=== PATIENT | female | born 1935 | race Caucasian/White ===

== ENCOUNTER 2018-10-14 11:21 | Inpatient (IN) | payer MEDICARE, MEDICAID | END 2018-10-17 17:30 | disposition home or self-care (01) | LOC: ER 11:21 → OVERFLOW 15:11 → WEST WING 17:46 | DX: L97.529 Non-pressure chronic ulcer of other part of left foot with unspecified severity (principal); I50.43 Acute on chronic combined systolic (congestive) and diastolic (congestive) heart failure; L03.116 Cellulitis of left lower limb; I11.0 Hypertensive heart disease with heart failure; E66.9 Obesity, unspecified; Z68.36 Body mass index [BMI] 36.0-36.9, adult ==

== ENCOUNTER 2020-12-09 11:50 | Inpatient (IN) | payer OTHER, MEDICAID ==
[~2020-12-09] VITALS: Ht 167.6 cm; Wt 90.9 kg
[~2020-12-09 11:50] MED LIST: ALBUAER3 IN; AML5T PO; FURO1TAB33 PO; LORA0.5T20 PO; LOSA100T33 PO; METO-289 PO
[2020-12-09] MEDS ORDERED: CLINDAMYCIN 600MG IV 50 ML IV ONE (12:30)
[2020-12-09] MEDS ORDERED: cefTRIAXone 1GM/50ML D5W 50 ML IV ONE (12:30)
[2020-12-09 13:15] LABS: Basophils # (auto) 0 10 ^3/uL (0-0.2); Basophils % (auto) 0.4 % (0.0-2.0); Eosinophils # (auto) 0.1 10 ^3/uL (0-0.8); Eosinophils % (auto) 0.8 % (0.0-7.0); Hematocrit 39.1 % (36.0-46.0); Hemoglobin 13.4 g/dL (12.2-16.2); Lymphocytes # (auto) 1.7 10 ^3/uL (0.4-5.4); Lymphocytes % (auto) 22.2 % (10.0-50.0); Mean Corpuscular Hemoglobin 30.8 pg (28.0-32.0); Mean Corpuscular Hgb Conc. 34.3 g/dL (32.0-36.0); Mean Corpuscular Volume 89.8 fL (80.0-100.0); Monocytes # (auto) 0.6 10 ^3/uL (0-1.3); Monocytes % (auto) 7.9 % (0.0-12.0); Neutrophils # (auto) 5.3 10 ^3/uL (1.6-8.6); Neutrophils % (auto) 68.7 % (37.0-80.0); Nucleated Red Blood Cells % 0.1 %; Platelet Count (auto) 160 10^3/uL (140-450); Red Blood Cells 4.35 10^6/uL (4.0-5.20); Red Cell Distribution Width 12.8 % (11.8-14.3); White Blood Cell 7.7 10^3/uL (4.4-10.8)
[2020-12-09 13:37] LABS: Alanine Aminotransferase 20 U/L (13-56); Albumin 3.4 g/dL (3.4-5.0); Anion Gap 4 (5-15); Aspartate Aminotransferase 10 U/L (15-37); BUN/Creatinine Ratio 19.8; Blood Urea Nitrogen 16 mg/dL (7-18); Calcium 8.8 mg/dL (8.5-10.1); Carbon Dioxide 31 mmol/L (21-32); Chloride 105 mmol/L (98-107); GFR African American 86 mL/min; GFR Non-African American 71 mL/min; Glucose 117 mg/dL (74-106); Potassium 4.8 mmol/L (3.5-5.1); Sodium 140 mmol/L (136-145)
[2020-12-09 13:39] LABS: Lactic Acid w/Reflex 2.5 mmol/L (0.4-2.0)
[2020-12-09 13:41] LABS: Alkaline Phosphatase 99 U/L (45-117); Bilirubin, Total 0.5 mg/dL (0.2-1.0); Total Protein 6.9 g/dL (6.4-8.2)
[2020-12-09] MEDS ORDERED: NITROGLYCERIN 0.4 MG SL TAB SL PRN ×2 (14:00→18:45)
[2020-12-09] MEDS ORDERED: MORPHINE SULF INJ 2 MG/ML SYRINGE 1ML IV PRN ×3 (14:00→18:45)
[2020-12-09] MEDS ORDERED: CLON0.2T PO (15:21)
[2020-12-09] MEDS ORDERED: CYAN100056 PO (15:21)
[2020-12-09] MEDS ORDERED: LOSA-39 PO (15:21)
[2020-12-09] MEDS ORDERED: FURO20TA3 PO (15:21)
[2020-12-09] MEDS ORDERED: TURM500C3 PO (15:21)
[2020-12-09] MEDS ORDERED: POTA-264 PO (15:21)
[2020-12-09] MEDS ORDERED: DOCUSATE SOD 100 MG CAP PO PRN (18:45)
[2020-12-09] MEDS ORDERED: ALUM & MAG HYDROX-SIMETH LIQ(MAALOX) 30 ML PO PRN (18:45)
[2020-12-09] MEDS ORDERED: hydrALAZINE HCL 20 MG/ML VL IV PRN (18:45)
[2020-12-09] MEDS ORDERED: CLINDAMYCIN 300MG IV 50 ML IV ONE (18:45)
[2020-12-09] MEDS ORDERED: LORazepam 0.5 MG TAB PO PRN (18:45)
[2020-12-09] MEDS ORDERED: ONDANSETRON HCL 4 MG/2 ML VIAL IV PRN (18:45)
[2020-12-09 21:00] VITALS: BP 161/75
[2020-12-09] MEDS: ENOXAPARIN SOD 40 MG/0.4 ML SYRINGE SC SCH (22:45)
[2020-12-09] MEDS: CLINDAMYCIN 300MG IV 50 ML IV SCH (22:45)
[2020-12-09 23:10] VITALS: BP_SYST 113; BP_SYST 161; BP_DIAS 65; BP_DIAS 75
[2020-12-09] MEDS: ACETAMINOPHEN 325 MG TAB PO PRN (23:25)
[2020-12-09 23:33] LABS: Cholesterol 151 mg/dL (< 200)
[2020-12-09 23:37] LABS: HDL Cholesterol 52 mg/dL (40-59); LDL Cholesterol 77 mg/dL (< 100); Triglycerides 124 mg/dL (< 150)
[2020-12-10 05:00] VITALS: BP 141/77
[2020-12-10 05:31] LABS: Albumin 3.3 g/dL (3.4-5.0); Anion Gap 5 (5-15); Blood Urea Nitrogen 20 mg/dL (7-18); Calcium 8.3 mg/dL (8.5-10.1); Carbon Dioxide 26 mmol/L (21-32); Chloride 107 mmol/L (98-107); Glucose 115 mg/dL (74-106); Magnesium 2.1 mg/dL (1.6-2.6); Sodium 138 mmol/L (136-145)
[2020-12-10 05:35] LABS: Alanine Aminotransferase 18 U/L (13-56); Alkaline Phosphatase 93 U/L (45-117); Aspartate Aminotransferase 14 U/L (15-37); Bilirubin, Total 0.6 mg/dL (0.2-1.0); GFR African American 96 mL/min; GFR Non-African American 79 mL/min; Phosphorus 3.8 mg/dL (2.5-4.90); Total Protein 6.2 g/dL (6.4-8.2); Uric Acid 5.3 mg/dL (2.6-6.0)
[2020-12-10 05:37] LABS: Basophils # (auto) 0.1 10 ^3/uL (0-0.2); Basophils % (auto) 1.4 % (0.0-2.0); Eosinophils # (auto) 0.1 10 ^3/uL (0-0.8); Eosinophils % (auto) 1.5 % (0.0-7.0); Hematocrit 36.7 % (36.0-46.0); Hemoglobin 12.9 g/dL (12.2-16.2); Lymphocytes # (auto) 2.4 10 ^3/uL (0.4-5.4); Lymphocytes % (auto) 29.1 % (10.0-50.0); Mean Corpuscular Hemoglobin 31.2 pg (28.0-32.0); Mean Corpuscular Hgb Conc. 35.2 g/dL (32.0-36.0); Mean Corpuscular Volume 88.4 fL (80.0-100.0); Monocytes # (auto) 0.6 10 ^3/uL (0-1.3); Monocytes % (auto) 7.4 % (0.0-12.0); Neutrophils % (auto) 60.6 % (37.0-80.0); Nucleated Red Blood Cells % 0.3 %; Platelet Count (auto) 138 10^3/uL (140-450); Red Blood Cells 4.15 10^6/uL (4.0-5.20); Red Cell Distribution Width 12.9 % (11.8-14.3); White Blood Cell 8.3 10^3/uL (4.4-10.8)
[2020-12-10 05:38] LABS: INR 1.08 (0.9-1.15); Partial Thromboplastin Time 28.9 sec (23.0-31.2)
[2020-12-10] MEDS: FUROSEMIDE 20 MG/2 ML VIAL IV SCH ×2 (06:00→18:55)
[2020-12-10] MEDS: CLINDAMYCIN 300MG IV 50 ML IV SCH ×3 (06:00→21:57)
[2020-12-10 07:05] LABS: Urine Bacteria FEW /hpf (None Seen); Urine Blood Negative /uL (Negative); Urine Specific Gravity 1.015 (1.001-1.035); Urine WBC 3 /hpf (0 - 5)
[2020-12-10 07:19] LABS: Alcohol, Urine < 3.0 mg/dL (0-10); Amphetamine Screen, Urine NEGATIVE (NEGATIVE); Barbiturate Scree,Urine NEGATIVE (NEGATIVE); Benzodiazephine Screen, Urine NEGATIVE (NEGATIVE); Cannabinoid Screen, Urine NEGATIVE (NEGATIVE); Cocaine Screen, Urine NEGATIVE (NEGATIVE); Opiate Scree,Urine NEGATIVE (NEGATIVE); Phencyclidine Screen, Urine NEGATIVE (NEGATIVE)
[2020-12-10 09:00] VITALS: BP 153/76
[2020-12-10] MEDS: POTASSIUM CHL 20 Meq TABLET PO SCH (09:53)
[2020-12-10] MEDS: cefTRIAXone 1GM/50ML D5W 50 ML IV SCH (09:53)
[2020-12-10] MEDS: ENOXAPARIN SOD 40 MG/0.4 ML SYRINGE SC SCH (09:53)
[2020-12-10 13:00] VITALS: BP 153/84
[2020-12-10] MEDS ORDERED: POTASSIUM CHL 10 Meq TABLET PO ONE (13:00)
[2020-12-10 16:50] VITALS: BP 147/77
[2020-12-10 22:00] VITALS: BP 124/83
[2020-12-11] MEDS: HYDROcodone-ACET 5/325MG TAB PO PRN ×2 (02:32→16:20)
[2020-12-11 05:00] VITALS: BP 145/77
[2020-12-11 05:28] LABS: Basophils # (auto) 0 10 ^3/uL (0-0.2); Basophils % (auto) 0.3 % (0.0-2.0); Eosinophils # (auto) 0.1 10 ^3/uL (0-0.8); Eosinophils % (auto) 0.8 % (0.0-7.0); Hematocrit 39.5 % (36.0-46.0); Hemoglobin 13.7 g/dL (12.2-16.2); Lymphocytes # (auto) 1.9 10 ^3/uL (0.4-5.4); Lymphocytes % (auto) 18.8 % (10.0-50.0); Mean Corpuscular Hemoglobin 31.1 pg (28.0-32.0); Mean Corpuscular Hgb Conc. 34.8 g/dL (32.0-36.0); Mean Corpuscular Volume 89.5 fL (80.0-100.0); Monocytes # (auto) 0.9 10 ^3/uL (0-1.3); Neutrophils # (auto) 7.2 10 ^3/uL (1.6-8.6); Neutrophils % (auto) 71.1 % (37.0-80.0); Nucleated Red Blood Cells % 0.1 %; Platelet Count (auto) 163 10^3/uL (140-450); Red Blood Cells 4.41 10^6/uL (4.0-5.20); Red Cell Distribution Width 13.3 % (11.8-14.3); White Blood Cell 10.1 10^3/uL (4.4-10.8)
[2020-12-11 05:34] LABS: Calcium 8.6 mg/dL (8.5-10.1); Potassium 3.7 mmol/L (3.5-5.1)
[2020-12-11 05:36] LABS: BUN/Creatinine Ratio 23.3
[2020-12-11] MEDS: CLINDAMYCIN 300MG IV 50 ML IV SCH ×3 (05:57→21:21)
[2020-12-11] MEDS: FUROSEMIDE 20 MG/2 ML VIAL IV SCH ×2 (05:58→18:15)
[2020-12-11 08:38] VITALS: BP 142/80
[2020-12-11] MEDS: cefTRIAXone 1GM/50ML D5W 50 ML IV SCH (09:21)
[2020-12-11] MEDS: CYANOCOBALAMIN 500 MCG TAB PO SCH (09:21)
[2020-12-11] MEDS: LOSARTAN POTASSIUM 50 MG TAB PO SCH (09:21)
[2020-12-11] MEDS: POTASSIUM CHL 20 Meq TABLET PO SCH (09:21)
[2020-12-11] MEDS: ENOXAPARIN SOD 40 MG/0.4 ML SYRINGE SC SCH (09:22)
[2020-12-11] MEDS ORDERED: POTASSIUM CHL 10 Meq TABLET PO SCH (10:00)
[2020-12-11 13:00] VITALS: BP 152/87
[2020-12-11 16:55] VITALS: BP 149/97
[2020-12-11 20:00] VITALS: BP 144/91
[2020-12-11] MEDS: ACETAMINOPHEN 325 MG TAB PO PRN (21:22)
[2020-12-11 22:00] VITALS: BP 144/91
[2020-12-12 05:00] VITALS: BP 120/64
[2020-12-12] MEDS: CLINDAMYCIN 300MG IV 50 ML IV SCH ×3 (05:23→21:34)
[2020-12-12] MEDS: FUROSEMIDE 20 MG/2 ML VIAL IV SCH ×2 (05:24→17:51)
[2020-12-12 09:00] VITALS: BP 150/94
[2020-12-12] MEDS: CYANOCOBALAMIN 500 MCG TAB PO SCH (09:13)
[2020-12-12] MEDS: POTASSIUM CHL 20 Meq TABLET PO SCH (09:15)
[2020-12-12] MEDS: LOSARTAN POTASSIUM 50 MG TAB PO SCH (09:15)
[2020-12-12] MEDS: ENOXAPARIN SOD 40 MG/0.4 ML SYRINGE SC SCH (09:15)
[2020-12-12] MEDS: cefTRIAXone 1GM/50ML D5W 50 ML IV SCH (09:16)
[2020-12-12 12:30] VITALS: BP 142/89
[2020-12-12] MEDS ORDERED: cloNIDine HCL 0.1 MG TAB PO PRN (14:15)
[2020-12-12 16:56] VITALS: BP 129/79
[2020-12-12] MEDS: HYDROcodone-ACET 5/325MG TAB PO PRN (21:36)
[2020-12-12 22:15] VITALS: BP 148/68
[2020-12-13] MEDS: CLINDAMYCIN 300MG IV 50 ML IV SCH ×3 (05:01→22:57)
[2020-12-13] MEDS: FUROSEMIDE 20 MG/2 ML VIAL IV SCH (05:02)
[2020-12-13 05:24] VITALS: BP 151/85
[2020-12-13 06:05] LABS: Basophils # (auto) 0.1 10 ^3/uL (0-0.2); Basophils % (auto) 0.7 % (0.0-2.0); Eosinophils # (auto) 0.2 10 ^3/uL (0-0.8); Eosinophils % (auto) 1.5 % (0.0-7.0); Hematocrit 42.9 % (36.0-46.0); Hemoglobin 15.1 g/dL (12.2-16.2); Lymphocytes # (auto) 3.4 10 ^3/uL (0.4-5.4); Lymphocytes % (auto) 29.6 % (10.0-50.0); Mean Corpuscular Hemoglobin 31.4 pg (28.0-32.0); Mean Corpuscular Hgb Conc. 35.1 g/dL (32.0-36.0); Mean Corpuscular Volume 89.4 fL (80.0-100.0); Monocytes # (auto) 1.1 10 ^3/uL (0-1.3); Monocytes % (auto) 9.6 % (0.0-12.0); Neutrophils # (auto) 6.8 10 ^3/uL (1.6-8.6); Neutrophils % (auto) 58.6 % (37.0-80.0); Nucleated Red Blood Cells % 0.2 %; Platelet Count (auto) 181 10^3/uL (140-450); Red Cell Distribution Width 13.1 % (11.8-14.3); White Blood Cell 11.6 10^3/uL (4.4-10.8)
[2020-12-13 06:25] LABS: Calcium 8.8 mg/dL (8.5-10.1); Potassium 3.5 mmol/L (3.5-5.1)
[2020-12-13 06:27] LABS: BUN/Creatinine Ratio 20.9
[2020-12-13 09:00] VITALS: BP 138/79
[2020-12-13] MEDS: CYANOCOBALAMIN 500 MCG TAB PO SCH (09:44)
[2020-12-13] MEDS: ENOXAPARIN SOD 40 MG/0.4 ML SYRINGE SC SCH (09:44)
[2020-12-13] MEDS: POTASSIUM CHL 20 Meq TABLET PO SCH (09:45)
[2020-12-13] MEDS: cefTRIAXone 1GM/50ML D5W 50 ML IV SCH (09:45)
[2020-12-13] MEDS: LOSARTAN POTASSIUM 50 MG TAB PO SCH (09:46)
[2020-12-13 12:52] VITALS: BP 138/95
[2020-12-13 17:00] VITALS: BP 134/75
[2020-12-13 22:16] VITALS: BP 132/85
[2020-12-14 05:17] VITALS: BP 141/70
[2020-12-14] MEDS: CLINDAMYCIN 300MG IV 50 ML IV SCH ×3 (05:50→22:33)
[2020-12-14 07:00] LABS: Basophils # (auto) 0 10 ^3/uL (0-0.2); Basophils % (auto) 0.4 % (0.0-2.0); Eosinophils # (auto) 0.2 10 ^3/uL (0-0.8); Eosinophils % (auto) 1.9 % (0.0-7.0); Hematocrit 41.1 % (36.0-46.0); Hemoglobin 14.5 g/dL (12.2-16.2); Lymphocytes # (auto) 2.8 10 ^3/uL (0.4-5.4); Lymphocytes % (auto) 27.9 % (10.0-50.0); Mean Corpuscular Hemoglobin 31.6 pg (28.0-32.0); Mean Corpuscular Hgb Conc. 35.4 g/dL (32.0-36.0); Mean Corpuscular Volume 89.4 fL (80.0-100.0); Monocytes # (auto) 0.9 10 ^3/uL (0-1.3); Monocytes % (auto) 9.1 % (0.0-12.0); Neutrophils # (auto) 6.1 10 ^3/uL (1.6-8.6); Neutrophils % (auto) 60.7 % (37.0-80.0); Nucleated Red Blood Cells % 0.1 %; Platelet Count (auto) 177 10^3/uL (140-450)
[2020-12-14 07:50] LABS: Calcium 8.8 mg/dL (8.5-10.1); Potassium 4.1 mmol/L (3.5-5.1)
[2020-12-14 07:54] LABS: BUN/Creatinine Ratio 21.3
[2020-12-14 08:30] VITALS: BP 132/68
[2020-12-14] MEDS: cefTRIAXone 1GM/50ML D5W 50 ML IV SCH (08:56)
[2020-12-14] MEDS: ENOXAPARIN SOD 40 MG/0.4 ML SYRINGE SC SCH (11:48)
[2020-12-14] MEDS: POTASSIUM CHL 20 Meq TABLET PO SCH (11:49)
[2020-12-14] MEDS: CYANOCOBALAMIN 500 MCG TAB PO SCH (11:49)
[2020-12-14] MEDS: LOSARTAN POTASSIUM 50 MG TAB PO SCH (11:51)
[2020-12-14 12:30] VITALS: BP 144/78
[2020-12-14 17:00] VITALS: BP 111/70
[2020-12-14 22:00] VITALS: BP 138/79
[2020-12-14] MEDS: HYDROcodone-ACET 5/325MG TAB PO PRN (23:03)
[2020-12-15 05:00] VITALS: BP 119/69
[2020-12-15] MEDS: CLINDAMYCIN 300MG IV 50 ML IV SCH ×2 (05:40→13:28)
[2020-12-15 06:12] LABS: Basophils # (auto) 0 10 ^3/uL (0-0.2); Basophils % (auto) 0.5 % (0.0-2.0); Eosinophils # (auto) 0.2 10 ^3/uL (0-0.8); Eosinophils % (auto) 2.5 % (0.0-7.0); Hematocrit 38.6 % (36.0-46.0); Hemoglobin 13.6 g/dL (12.2-16.2); Lymphocytes # (auto) 2.5 10 ^3/uL (0.4-5.4); Lymphocytes % (auto) 29.5 % (10.0-50.0); Mean Corpuscular Hemoglobin 31.8 pg (28.0-32.0); Mean Corpuscular Hgb Conc. 35.2 g/dL (32.0-36.0); Mean Corpuscular Volume 90.1 fL (80.0-100.0); Monocytes # (auto) 0.9 10 ^3/uL (0-1.3); Monocytes % (auto) 10.6 % (0.0-12.0); Neutrophils # (auto) 4.8 10 ^3/uL (1.6-8.6); Neutrophils % (auto) 56.9 % (37.0-80.0); Nucleated Red Blood Cells % 0.1 %; Platelet Count (auto) 180 10^3/uL (140-450); Red Blood Cells 4.29 10^6/uL (4.0-5.20); Red Cell Distribution Width 13.3 % (11.8-14.3); White Blood Cell 8.5 10^3/uL (4.4-10.8)
[2020-12-15 06:33] LABS: BUN/Creatinine Ratio 21.1; Calcium 8.7 mg/dL (8.5-10.1); Potassium 4.1 mmol/L (3.5-5.1)
[2020-12-15 09:00] VITALS: BP 139/69
[2020-12-15] MEDS: cefTRIAXone 1GM/50ML D5W 50 ML IV SCH (09:00)
[2020-12-15] MEDS: CYANOCOBALAMIN 500 MCG TAB PO SCH (10:05)
[2020-12-15] MEDS: ENOXAPARIN SOD 40 MG/0.4 ML SYRINGE SC SCH (10:05)
[2020-12-15] MEDS: LOSARTAN POTASSIUM 50 MG TAB PO SCH (10:05)
[2020-12-15] MEDS ORDERED: CLIN300C8 PO (11:22)
[2020-12-15 13:00] VITALS: BP 121/67
[2020-12-15 17:00] VITALS: BP 127/98
== END 2020-12-15 20:15 | disposition home health service (06) | DRG 602 ==
LOC: ER 11:50 → TELE 13:49 → TELE-CENTR 20:55
PROVIDERS: ADMIT Hospitalist; ATTEND Internal Medicine Pulmonary Disease
DX: L03.116 Cellulitis of left lower limb (principal); N17.0 Acute kidney failure with tubular necrosis; I50.43 Acute on chronic combined systolic (congestive) and diastolic (congestive) heart failure; J18.9 Pneumonia, unspecified organism; I13.0 Hypertensive heart and chronic kidney disease with heart failure and stage 1 through stage 4 chronic kidney disease, or unspecified chronic kidney disease; J44.0 Chronic obstructive pulmonary disease with (acute) lower respiratory infection; I16.9 Hypertensive crisis, unspecified; Z20.822 Contact with and (suspected) exposure to COVID-19; N18.9 Chronic kidney disease, unspecified; I87.2 Venous insufficiency (chronic) (peripheral); E66.01 Morbid (severe) obesity due to excess calories; M19.90 Unspecified osteoarthritis, unspecified site; E78.5 Hyperlipidemia, unspecified; Z90.49 Acquired absence of other specified parts of digestive tract; Z90.89 Acquired absence of other organs; Z82.49 Family history of ischemic heart disease and other diseases of the circulatory system; Z79.899 Other long term (current) drug therapy; Z68.37 Body mass index [BMI] 37.0-37.9, adult
CPT/HCPCS: 36415; 71045; 80048; 80053; 80061; 80307; 81001; 82306; 83036; 83605; 83735; 83880; 84100; 84443; 84484; 84550; 85025; 85049; 85379; 85610; 85730; 87040; 87086; 87426; 93005; 93306; 93971; 96365; 96367; 97110; 97116; 97163; 97530; G0378; J0696; J3490

== ENCOUNTER 2022-05-08 11:07 | Inpatient (IN) | payer OTHER, MEDICAID ==
[~2022-05-08] VITALS: Ht 149.9 cm; Wt 90.0 kg
[~2022-05-08 11:07] MED LIST changes: -ALBUAER3 IN; -AML5T PO; +CLIN300C8 PO; +CLON0.2T PO; +CYAN100056 PO; -FURO1TAB33 PO; +FURO20TA3 PO; -LORA0.5T20 PO; +LOSA-39 PO; -LOSA100T33 PO; -METO-289 PO; +POTA-264 PO; +TURM500C3 PO
[2022-05-08 13:12] LABS: Basophils # (auto) 0 10 ^3/uL (0-0.2); Basophils % (auto) 0.4 % (0.0-2.0); Eosinophils # (auto) 0 10 ^3/uL (0-0.8); Eosinophils % (auto) 0.5 % (0.0-7.0); Hematocrit 43.4 % (36.0-46.0); Hemoglobin 14.3 g/dL (12.2-16.2); Lymphocytes # (auto) 1.4 10 ^3/uL (0.4-5.4); Lymphocytes % (auto) 18.3 % (10.0-50.0); Mean Corpuscular Hemoglobin 29.6 pg (28.0-32.0); Mean Corpuscular Hgb Conc. 32.9 g/dL (32.0-36.0); Monocytes # (auto) 0.5 10 ^3/uL (0-1.3); Monocytes % (auto) 6.7 % (0.0-12.0); Neutrophils # (auto) 5.8 10 ^3/uL (1.6-8.6); Neutrophils % (auto) 74.1 % (37.0-80.0); Nucleated Red Blood Cells % 0.2 %; Red Blood Cells 4.83 10^6/uL (4.0-5.20); Red Cell Distribution Width 13.7 % (11.8-14.3); White Blood Cell 7.9 10^3/uL (4.4-10.8)
[2022-05-08] MEDS ORDERED: CLINDAMYCIN 600MG IV 50 ML IV ONE (14:30)
[2022-05-08] MEDS ORDERED: HYDROcodone-ACET 5/325MG TAB PO PRN (15:00)
[2022-05-08] MEDS ORDERED: PANTOPRAZOLE 40 MG/10 ML VIAL INJ IV ONE (15:00)
[2022-05-08] MEDS ORDERED: FUROSEMIDE 20 MG/2 ML VIAL IV ONE (15:00)
[2022-05-08 17:17] LABS: INR 0.99 (0.9-1.15); Partial Thromboplastin Time 26.8 sec (24.6-33.4)
[2022-05-08 17:22] LABS: BUN/Creatinine Ratio 18.3; Calcium 9.5 mg/dL (8.5-10.1); Potassium 3.9 mmol/L (3.5-5.1)
[2022-05-08 17:28] LABS: Bilirubin, Total 0.6 mg/dL (0.2-1.0); Total Protein 7.6 g/dL (6.4-8.2)
[2022-05-08 17:37] LABS: Cholesterol 143 mg/dL (< 200); HDL Cholesterol 55 mg/dL (40-59); LDL Cholesterol 81 mg/dL (< 100); Triglycerides 181 mg/dL (< 150)
[2022-05-08] MEDS: CLINDAMYCIN 600MG IV 50 ML IV SCH (22:00)
[2022-05-08] MEDS: ASCORBIC ACID 500 MG TAB PO SCH (22:00)
[2022-05-09] MEDS: CLINDAMYCIN 600MG IV 50 ML IV SCH ×3 (06:00→22:02)
[2022-05-09 06:50] LABS: Basophils # (auto) 0 10 ^3/uL (0-0.2); Basophils % (auto) 0.5 % (0.0-2.0); Eosinophils # (auto) 0.1 10 ^3/uL (0-0.8); Eosinophils % (auto) 0.7 % (0.0-7.0); Hematocrit 46.4 % (36.0-46.0); Hemoglobin 15.5 g/dL (12.2-16.2); Lymphocytes # (auto) 2.4 10 ^3/uL (0.4-5.4); Lymphocytes % (auto) 24.1 % (10.0-50.0); Mean Corpuscular Hemoglobin 30.6 pg (28.0-32.0); Mean Corpuscular Hgb Conc. 33.3 g/dL (32.0-36.0); Mean Corpuscular Volume 91.7 fL (80.0-100.0); Monocytes # (auto) 0.7 10 ^3/uL (0-1.3); Monocytes % (auto) 7.5 % (0.0-12.0); Neutrophils # (auto) 6.6 10 ^3/uL (1.6-8.6); Neutrophils % (auto) 67.2 % (37.0-80.0); Nucleated Red Blood Cells % 0.1 %; Red Blood Cells 5.06 10^6/uL (4.0-5.20); Red Cell Distribution Width 13.8 % (11.8-14.3); White Blood Cell 9.8 10^3/uL (4.4-10.8)
[2022-05-09] MEDS: SODIUM CHLORIDE 0.9% 1,000 ML IV SCH ×2 (07:00→07:40)
[2022-05-09 09:00] VITALS: BP 140/81
[2022-05-09] MEDS: FUROSEMIDE 20 MG/2 ML VIAL IV SCH (10:00)
[2022-05-09] MEDS ORDERED: PANTOPRAZOLE 40 MG/10 ML VIAL INJ IV SCH (10:00)
[2022-05-09] MEDS: ASCORBIC ACID 500 MG TAB PO SCH ×2 (10:02→22:02)
[2022-05-09] MEDS: MULTIPLE VITAMIN TAB PO SCH (10:02)
[2022-05-09] MEDS: ZINC SULFATE 220mg CAP or TAB PO SCH (10:02)
[2022-05-09] MEDS: ENOXAPARIN SOD 40 MG/0.4 ML SYRINGE SC SCH (10:03)
[2022-05-09] MEDS ORDERED: cefTRIAXone 1GM/50ML D5W 50 ML IV ONE (11:30)
[2022-05-09 13:00] VITALS: BP 150/78
[2022-05-09] MEDS: ACETAMINOPHEN 325 MG TAB PO PRN (14:46)
[2022-05-09 17:00] VITALS: BP 134/56
[2022-05-09 22:00] VITALS: BP 145/71
[2022-05-10] MEDS: SODIUM CHLORIDE 0.9% 1,000 ML IV SCH ×2 (01:29→17:00)
[2022-05-10 05:00] VITALS: BP 165/66
[2022-05-10] MEDS: CLINDAMYCIN 600MG IV 50 ML IV SCH ×3 (05:59→21:58)
[2022-05-10 08:00] VITALS: BP 179/93
[2022-05-10] MEDS: cefTRIAXone 1GM/50ML D5W 50 ML IV SCH (09:00)
[2022-05-10] MEDS ORDERED: cloNIDine HCL 0.1 MG TAB PO ONE (09:30)
[2022-05-10] MEDS: FUROSEMIDE 20 MG/2 ML VIAL IV SCH (10:08)
[2022-05-10] MEDS: ENOXAPARIN SOD 40 MG/0.4 ML SYRINGE SC SCH (10:09)
[2022-05-10] MEDS: ASCORBIC ACID 500 MG TAB PO SCH ×2 (10:09→21:58)
[2022-05-10] MEDS: MULTIPLE VITAMIN TAB PO SCH (10:09)
[2022-05-10] MEDS: ZINC SULFATE 220mg CAP or TAB PO SCH (10:17)
[2022-05-10] MEDS: ACETAMINOPHEN 325 MG TAB PO PRN ×2 (11:17→22:14)
[2022-05-10 12:00] VITALS: BP 171/83
[2022-05-10 16:00] VITALS: BP 146/75
[2022-05-10] MEDS ORDERED: DAKINS HALF STR 0.25% (NaHypochlorite) 473 ML TOPICAL SOL TOP ONE (19:30)
[2022-05-10 22:00] VITALS: BP 169/80
[2022-05-10] MEDS: cloNIDine HCL 0.1 MG TAB PO PRN (23:24)
[2022-05-11 05:00] VITALS: BP 136/76
[2022-05-11] MEDS: CLINDAMYCIN 600MG IV 50 ML IV SCH ×2 (06:00→14:00)
[2022-05-11 09:00] VITALS: BP 141/72
[2022-05-11] MEDS: cefTRIAXone 1GM/50ML D5W 50 ML IV SCH (09:00)
[2022-05-11] MEDS: FUROSEMIDE 20 MG/2 ML VIAL IV SCH (09:20)
[2022-05-11] MEDS: SODIUM CHLORIDE 0.9% 1,000 ML IV SCH (09:21)
[2022-05-11] MEDS: ACETAMINOPHEN 325 MG TAB PO PRN (09:22)
[2022-05-11] MEDS: ASCORBIC ACID 500 MG TAB PO SCH (09:22)
[2022-05-11] MEDS: ZINC SULFATE 220mg CAP or TAB PO SCH (09:22)
[2022-05-11] MEDS: MULTIPLE VITAMIN TAB PO SCH (09:22)
[2022-05-11] MEDS: ENOXAPARIN SOD 40 MG/0.4 ML SYRINGE SC SCH (09:22)
[2022-05-11] MEDS ORDERED: CLIN300C8 PO (10:54)
[2022-05-11] MEDS ORDERED: HYDR-4902 PO (10:54)
[2022-05-11] MEDS ORDERED: CEPH-322 PO (10:54)
[2022-05-11] MEDS: cloNIDine HCL 0.1 MG TAB PO PRN (12:35)
[2022-05-11 12:44] VITALS: BP 132/65
[2022-05-11 13:00] VITALS: BP 164/81
== END 2022-05-11 18:00 | disposition home or self-care (01) | DRG 602 ==
LOC: ER 11:07 → EDBD 11:07 → OVERFLOW 15:06 → WEST WING 05-09 09:41
PROVIDERS: ADMIT Nurse Practitioner Family; ATTEND Family Medicine
DX: L03.116 Cellulitis of left lower limb (principal); I50.43 Acute on chronic combined systolic (congestive) and diastolic (congestive) heart failure; J44.1 Chronic obstructive pulmonary disease with (acute) exacerbation; Z68.41 Body mass index [BMI] 40.0-44.9, adult; M86.8X7 Other osteomyelitis, ankle and foot; E66.01 Morbid (severe) obesity due to excess calories; I11.0 Hypertensive heart disease with heart failure; J44.9 Chronic obstructive pulmonary disease, unspecified; H91.90 Unspecified hearing loss, unspecified ear; Z20.822 Contact with and (suspected) exposure to COVID-19; M19.90 Unspecified osteoarthritis, unspecified site; M81.0 Age-related osteoporosis without current pathological fracture; Z90.49 Acquired absence of other specified parts of digestive tract
CPT/HCPCS: 36415; 73700; 80053; 80061; 83036; 85025; 85610; 85652; 85730; 87077; 87186; 87205; 87426; 93306; 93926; 93971; C9113; G0378; J0696; J3490

== ENCOUNTER 2023-12-27 09:24 | Inpatient (IN) | payer OTHER, MEDICAID ==
[~2023-12-27] VITALS: Ht 172.7 cm; Wt 87.5 kg
[~2023-12-27 09:24] MED LIST changes: +CEPH250C PO; +CLIN1CAP70 PO; -CLIN300C8 PO; +HYDR-4902 PO; -LOSA-39 PO; +LOSA-535 PO
[2023-12-27 10:12] LABS: Basophils # (auto) 0 10 ^3/uL (0-0.2); Basophils % (auto) 0.4 % (0.0-2.0); Eosinophils # (auto) 0 10 ^3/uL (0-0.8); Eosinophils % (auto) 0.5 % (0.0-7.0); Hematocrit 40.2 % (36.0-46.0); Hemoglobin 13.9 g/dL (12.2-16.2); Lymphocytes % (auto) 22.5 % (10.0-50.0); Mean Corpuscular Hemoglobin 31.1 pg (28.0-32.0); Mean Corpuscular Hgb Conc. 34.4 g/dL (32.0-36.0); Mean Corpuscular Volume 90.4 fL (80.0-100.0); Monocytes # (auto) 0.6 10 ^3/uL (0-1.3); Neutrophils # (auto) 6.1 10 ^3/uL (1.6-8.6); Neutrophils % (auto) 69.6 % (37.0-80.0); Nucleated Red Blood Cells % 0.1 %; Red Blood Cells 4.45 10^6/uL (4.0-5.20); Red Cell Distribution Width 13.3 % (11.8-14.3); White Blood Cell 8.7 10^3/uL (4.4-10.8)
[2023-12-27 10:17] VITALS: PULSE 58; RESP 12; O2SAT 96
[2023-12-27 10:29] LABS: Alanine Aminotransferase 11 U/L (7-40); Albumin 4.3 g/dL (3.2-4.8); Alkaline Phosphatase 125 U/L (46-116); Anion Gap 6 (5-15); Aspartate Aminotransferase 13 U/L (13-40); Blood Urea Nitrogen 12 mg/dL (9-23); Calcium 9.6 mg/dL (8.7-10.4); Carbon Dioxide 29 mmol/L (20-30); Chloride 105 mmol/L (98-107); Glucose 139 mg/dL (74-106); Magnesium 2.2 mg/dL (1.6-2.6); Potassium 4.1 mmol/L (3.5-5.1); Sodium 140 mmol/L (136-145)
[2023-12-27 10:30] LABS: Total Protein 6.6 g/dL (5.7-8.2)
[2023-12-27] MEDS: FUROSEMIDE 40 MG/4 ML VIAL IV ONE (11:18)
[2023-12-27 11:30] LABS: INR 1.07 (0.9-1.15); Partial Thromboplastin Time 25.1 SEC (24.5-34.5); Prothrombin Time 11.3 sec (9.3-11.8)
[2023-12-27 11:34] LABS: Urine Bacteria None Seen /hpf (None Seen)
[2023-12-27 11:48] LABS: Urine Blood 1+ /uL (Negative); Urine Clarity Turbid (Clear); Urine Color Colorless (Yellow); Urine Protein, UAD Negative (Negative); Urine Specific Gravity 1.008 (1.001-1.035); Urine Urobilinogen Normal (Negative); Urine WBC <1 /hpf (0 - 5)
[2023-12-27] MEDS: cefTRIAXone 1GM/50ML D5W 50 ML IV ONE (12:41)
[2023-12-27] MEDS: CLINDAMYCIN 600MG IV 50 ML IV ONE (12:43)
[2023-12-27] MEDS ORDERED: NITROGLYCERIN 0.4 MG SL TAB SL PRN ×2 (13:00)
[2023-12-27] MEDS ORDERED: MORPHINE SULFATE INJ 2 MG/ml SYRG IV PRN (13:00)
[2023-12-27] MEDS ORDERED: MORPHINE SULFATE 4 MG/ML SYR/VIAL IV PRN (13:00)
[2023-12-27 14:00] VITALS: PULSE 53; RESP 17; O2SAT 95
[2023-12-27 14:41] LABS: INR 1.13 (0.9-1.15); Prothrombin Time 11.9 sec (9.3-11.8)
[2023-12-27] MEDS: CLINDAMYCIN 300MG IV 50 ML IV SCH (16:09)
[2023-12-27] MEDS: BUMETANIDE 2.5mg/10ml (0.25 mg/ml) INJ IV ONE (16:11)
[2023-12-27 16:31] VITALS: BP 168/80; PULSE 53; RESP 17; TEMP 98; O2SAT 95
[2023-12-27] MEDS: BUMETANIDE 2.5mg/10ml (0.25 mg/ml) INJ IV SCH (19:58)
[2023-12-27 20:00] VITALS: PULSE 60
[2023-12-27 21:00] VITALS: BP 131/51; PULSE 54; RESP 18; TEMP 98.3; O2SAT 95
[2023-12-27] MEDS: ATORVASTATIN 20 MG TAB PO SCH (21:46)
[2023-12-27] MEDS: ENOXAPARIN SOD 40 MG/0.4 ML SYRINGE SC ONE (21:47)
[2023-12-27] MEDS: ACETAMINOPHEN 325 MG TAB PO PRN (22:09)
[2023-12-28] VITALS (8 sets, daily range): BP systolic 128–163; BP diastolic 50–82; PULSE 58–89; RESP 18–21; TEMP 97.8–98.9; O2SAT 94–100
[2023-12-28 06:19] LABS: Alanine Aminotransferase 10 U/L (7-40); Albumin 4.1 g/dL (3.2-4.8); Alkaline Phosphatase 121 U/L (46-116); Anion Gap 5 (5-15); Aspartate Aminotransferase < 8 U/L (13-40); BUN/Creatinine Ratio 20.2 (10.0-20.0); Blood Urea Nitrogen 18 mg/dL (9-23); Calcium 9.6 mg/dL (8.7-10.4); Carbon Dioxide 32 mmol/L (20-30); Chloride 101 mmol/L (98-107); Cholesterol 129 mg/dL (< 200); Glucose 139 mg/dL (74-106); HDL Cholesterol 43 mg/dL (40-59); LDL Cholesterol 64 mg/dL (< 100); Potassium 3.8 mmol/L (3.5-5.1); Sodium 138 mmol/L (136-145); Total Protein 6.4 g/dL (5.7-8.2); Triglycerides 150 mg/dL (< 150)
[2023-12-28] MEDS: LOSARTAN POTASSIUM 50 MG TAB PO SCH (09:42)
[2023-12-28] MEDS: ASPirin 81 mg TAB PO SCH (09:42)
[2023-12-28] MEDS: DOCUSATE SOD 100 MG CAP PO SCH (09:42)
[2023-12-28] MEDS: ENOXAPARIN SOD 40 MG/0.4 ML SYRINGE SC SCH (10:00)
[2023-12-28] MEDS: cefTRIAXone 1GM/50ML D5W 50 ML IV ONE (16:37)
[2023-12-28] MEDS: ONDANSETRON HCL 4 MG/2 ML VIAL IV PRN (17:45)
[2023-12-29] VITALS (8 sets, daily range): BP systolic 138–164; BP diastolic 61–92; PULSE 74–104; RESP 18–21; TEMP 98–98.4; O2SAT 96–98
[2023-12-29] MEDS: hydrALAZINE HCL 20 MG/ML VL IV PRN (02:11)
[2023-12-29 06:13] LABS: Basophils # (auto) 0 10 ^3/uL (0-0.2); Basophils % (auto) 0.3 % (0.0-2.0); Eosinophils # (auto) 0 10 ^3/uL (0-0.8); Eosinophils % (auto) 0.1 % (0.0-7.0); Hematocrit 45.1 % (36.0-46.0); Hemoglobin 15.6 g/dL (12.2-16.2); Lymphocytes # (auto) 1.5 10 ^3/uL (0.4-5.4); Lymphocytes % (auto) 11.3 % (10.0-50.0); Mean Corpuscular Hemoglobin 31.1 pg (28.0-32.0); Mean Corpuscular Hgb Conc. 34.6 g/dL (32.0-36.0); Mean Corpuscular Volume 89.9 fL (80.0-100.0); Monocytes # (auto) 0.8 10 ^3/uL (0-1.3); Monocytes % (auto) 6.4 % (0.0-12.0); Neutrophils # (auto) 10.8 10 ^3/uL (1.6-8.6); Neutrophils % (auto) 81.9 % (37.0-80.0); Nucleated Red Blood Cells % 0.1 %; Red Blood Cells 5.02 10^6/uL (4.0-5.20); Red Cell Distribution Width 13.4 % (11.8-14.3); White Blood Cell 13.2 10^3/uL (4.4-10.8)
[2023-12-29 06:20] LABS: Anion Gap 7 (5-15); Carbon Dioxide 30 mmol/L (20-30); Chloride 101 mmol/L (98-107); Potassium 3.5 mmol/L (3.5-5.1); Sodium 138 mmol/L (136-145)
[2023-12-29 06:22] LABS: Calcium 9.7 mg/dL (8.7-10.4)
[2023-12-29 06:26] LABS: BUN/Creatinine Ratio 16.9 (10.0-20.0); Blood Urea Nitrogen 14 mg/dL (9-23); Glucose 172 mg/dL (74-106)
[2023-12-29] MEDS: cefTRIAXone 1GM/50ML D5W 50 ML IV SCH (09:25)
[2023-12-29] MEDS ORDERED: OMNIPAQUE 12mg/ml 500ml ORAL SOLUTION PO ONE (14:08)
[2023-12-29] MEDS ORDERED: IOHEXOL 300 MG/ML 100ML BOTTLE IJ ONE (18:15)
[2023-12-29] MEDS ORDERED: ALBUTEROL SULF 2.5 MG/0.5ML(0.5%) NEB SOLN NEB PRN (21:30)
[2023-12-29] MEDS ORDERED: IPRATROPIUM BROM 0.5 MG/2.5ML INH SOL NEB PRN (21:30)
[2023-12-29] MEDS: ceFAZolin 2 GM/D5W50ml 50 ML IV ONE (22:08)
[2023-12-30] VITALS (7 sets, daily range): BP systolic 136–169; BP diastolic 62–80; PULSE 95–117; RESP 16–21; TEMP 98–98.5; O2SAT 92–95
[2023-12-30] MEDS: ceFAZolin 2 GM/D5W50ml 50 ML IV SCH (06:00)
[2023-12-30 06:56] LABS: Alanine Aminotransferase 11 U/L (7-40); Albumin 4.3 g/dL (3.2-4.8); Alkaline Phosphatase 126 U/L (46-116); Anion Gap 9 (5-15); Aspartate Aminotransferase 16 U/L (13-40); BUN/Creatinine Ratio 12.8 (10.0-20.0); Blood Urea Nitrogen 11 mg/dL (9-23); Calcium 9.6 mg/dL (8.7-10.4); Carbon Dioxide 26 mmol/L (20-30); Chloride 99 mmol/L (98-107); Glucose 183 mg/dL (74-106); Magnesium 1.9 mg/dL (1.6-2.6); Potassium 3.2 mmol/L (3.5-5.1); Sodium 134 mmol/L (136-145)
[2023-12-30 06:57] LABS: Bilirubin, Total 1.1 mg/dL (0.2-1.0); Total Protein 6.8 g/dL (5.7-8.2)
[2023-12-30 07:06] LABS: Basophils # (auto) 0 10 ^3/uL (0-0.2); Eosinophils # (auto) 0 10 ^3/uL (0-0.8); Eosinophils % (auto) 0.1 % (0.0-7.0); Lymphocytes # (auto) 1.9 10 ^3/uL (0.4-5.4); Red Cell Distribution Width 13.4 % (11.8-14.3); White Blood Cell 19.2 10^3/uL (4.4-10.8)
[2023-12-30 07:15] LABS: Basophils % (auto) 0.2 % (0.0-2.0); Hematocrit 48.2 % (36.0-46.0); Hemoglobin 16.3 g/dL (12.2-16.2); Lymphocytes % (auto) 9.8 % (10.0-50.0); Mean Corpuscular Hemoglobin 30.6 pg (28.0-32.0); Mean Corpuscular Hgb Conc. 33.8 g/dL (32.0-36.0); Mean Corpuscular Volume 90.8 fL (80.0-100.0); Monocytes # (auto) 1.1 10 ^3/uL (0-1.3); Neutrophils # (auto) 16.1 10 ^3/uL (1.6-8.6); Neutrophils % (auto) 83.9 % (37.0-80.0); Nucleated Red Blood Cells % 0.2 %; Red Blood Cells 5.31 10^6/uL (4.0-5.20)
[2023-12-30] MEDS: FUROSEMIDE 20 MG TAB PO SCH (10:00)
[2023-12-30] MEDS: cefTRIAXone 1GM/50ML D5W 50 ML IV SCH (10:22)
[2023-12-30] MEDS: POTASSIUM EFFERVESENT TAB 25 MEQ PO ONE ×2 (10:25→13:15)
[2023-12-30] MEDS: DOCUSATE SOD 100 MG CAP PO ONE (13:15)
[2023-12-30] MEDS ORDERED: BUME2TAB5 PO (14:19)
[2023-12-30] MEDS ORDERED: CEPH250C PO (14:19)
[2023-12-30] MEDS: PANTOPRAZOLE 40 MG/10 ML VIAL INJ IV ONE (15:08)
[2023-12-30] MEDS: MAGNESIUM SULFATE 1GM/100ML 100 ML IV ONE (15:08)
[2023-12-30] MEDS: BUMETANIDE 2.5mg/10ml (0.25 mg/ml) INJ IV ONE (15:09)
[2023-12-30] MEDS: POTASSIUM CHL 10 Meq TABLET PO ONE (15:09)
[2023-12-30] MEDS ORDERED: BUMETANIDE 2.5mg/10ml (0.25 mg/ml) INJ IV SCH (18:00)
[2023-12-30] MEDS ORDERED: DOCUSATE SOD 100 MG CAP PO SCH (22:00)
[2023-12-31] MEDS ORDERED: POTASSIUM CHL 10 Meq TABLET PO SCH (10:00)
[2023-12-31] MEDS ORDERED: POTASSIUM EFFERVESENT TAB 25 MEQ PO SCH (10:00)
[2023-12-31] MEDS ORDERED: PANTOPRAZOLE 40 MG/10 ML VIAL INJ IV SCH (10:00)
== END 2023-12-30 19:09 | disposition home or self-care (01) | DRG 602 ==
LOC: EDBD 09:24 → ER 09:24 → TELE 13:12 → TELE-CENTR 14:53
PROVIDERS: ADMIT Internal Medicine Pulmonary Disease; ATTEND Internal Medicine Pulmonary Disease
DX: L03.116 Cellulitis of left lower limb (principal); I50.33 Acute on chronic diastolic (congestive) heart failure; J44.1 Chronic obstructive pulmonary disease with (acute) exacerbation; I16.1 Hypertensive emergency; J45.901 Unspecified asthma with (acute) exacerbation; I11.0 Hypertensive heart disease with heart failure; E66.01 Morbid (severe) obesity due to excess calories; I27.20 Pulmonary hypertension, unspecified; K57.30 Diverticulosis of large intestine without perforation or abscess without bleeding; M16.12 Unilateral primary osteoarthritis, left hip; M17.12 Unilateral primary osteoarthritis, left knee; I08.1 Rheumatic disorders of both mitral and tricuspid valves; E11.9 Type 2 diabetes mellitus without complications; Z68.36 Body mass index [BMI] 36.0-36.9, adult; Z79.899 Other long term (current) drug therapy; Z90.49 Acquired absence of other specified parts of digestive tract; Z83.3 Family history of diabetes mellitus; Z82.49 Family history of ischemic heart disease and other diseases of the circulatory system; Z91.199 Patient's noncompliance with other medical treatment and regimen due to unspecified reason; Z79.4 Long term (current) use of insulin
CPT/HCPCS: 36415; 70450; 71045; 73700; 74177; 80048; 80053; 80061; 81001; 83735; 83880; 84484; 85025; 85610; 85730; 93005; 93306; 93970; 96365; 96368; G0378; J2405; J2470; J3490